=== PATIENT | female | born 1995 | race Two or more races ===

== ENCOUNTER → 2022-06-05 | Outpatient (CLI) | payer MEDICAID ==
[2022-06-05 12:02] LABS: Basophils # (auto) 0 10 ^3/uL (0-0.2); Basophils % (auto) 0.2 % (0.0-2.0); Eosinophils # (auto) 0.1 10 ^3/uL (0-0.8); Eosinophils % (auto) 1.3 % (0.0-7.0); Hematocrit 36.3 % (36.0-46.0); Hemoglobin 12.1 g/dL (12.2-16.2); Lymphocytes # (auto) 0.9 10 ^3/uL (0.4-5.4); Lymphocytes % (auto) 14.9 % (10.0-50.0); Mean Corpuscular Hemoglobin 30.7 pg (28.0-32.0); Mean Corpuscular Hgb Conc. 33.3 g/dL (32.0-36.0); Mean Corpuscular Volume 92.3 fL (80.0-100.0); Monocytes # (auto) 0.5 10 ^3/uL (0-1.3); Monocytes % (auto) 7.6 % (0.0-12.0); Neutrophils # (auto) 4.5 10 ^3/uL (1.6-8.6); Nucleated Red Blood Cells % 0.1 %; Red Blood Cells 3.94 10^6/uL (4.0-5.20)
[2022-06-06 07:06] LABS: RPR Non Reactive (Non Reactive)
== END | disposition home or self-care (01) ==
LOC: LAB 11:27
PROVIDERS: ATTEND Obstetrics & Gynecology
DX: Z34.80 Encounter for supervision of other normal pregnancy, unspecified trimester (principal); Z3A.00 Weeks of gestation of pregnancy not specified
CPT/HCPCS: 36415; 85025; 86592

== ENCOUNTER 2022-06-20 11:45 | Inpatient (IN) | payer MEDICAID ==
[~2022-06-20] VITALS: Ht 152.4 cm; Wt 81.6 kg
[2022-06-20] MEDS ORDERED: LACTATED RINGER'S 1,000 ML IV SCH (12:30)
[2022-06-20] MEDS ORDERED: LIDOCAINE 2%HCL (LOCAL ANESTH.) INJ 20ML MDV IJ PRN (12:30)
[2022-06-20] MEDS ORDERED: DERMOPLAST 60ML BOTTLE TOP PRN (12:30)
[2022-06-20] MEDS ORDERED: PHISODERM TOP SOLN 240ML BTL TOP PRN (12:30)
[2022-06-20] MEDS ORDERED: WITCH HAZEL-GLYCERIN PAD TOP PRN (12:30)
[2022-06-20] MEDS ORDERED: LACT. RINGERS/OXYTOCIN 20UNITS 500 ML IV ONE ×2 (12:30→13:00)
[2022-06-20] MEDS ORDERED: LACT. RINGERS/OXYTOCIN 20UNITS 1,000 ML IV ONE (12:34)
[2022-06-20] MEDS ORDERED: METHYLERGONOVINE MALEATE 0.2 MG/ML AMP IM ONE (12:35)
[2022-06-20] MEDS ORDERED: LIDOCAINE 2%HCL (LOCAL ANESTH.) INJ 10ml MDV ONE ×2 (12:36→12:39)
[2022-06-20] MEDS ORDERED: miSOPROStol 100 mcg TAB PR PRN (12:45)
[2022-06-20] MEDS ORDERED: miSOPROStol 100 mcg TAB SL PRN ×2 (12:45→14:30)
[2022-06-20] MEDS ORDERED: miSOPROStol 100 mcg TAB ONE (12:45)
[2022-06-20] MEDS ORDERED: ONDANSETRON HCL 4 MG/2 ML VIAL ONE (12:47)
[2022-06-20] MEDS ORDERED: CARBOPROST TROMETHAMINE 250 MCG/1ML VIAL IM ONE ×3 (12:47→13:00)
[2022-06-20] MEDS ORDERED: ONDANSETRON HCL 4 MG/2 ML VIAL IM ONE (13:00)
[2022-06-20] MEDS ORDERED: DIPHENOXYLATE W/ATROPINE 2.5 MG TAB PO ONE (13:00)
[2022-06-20] MEDS ORDERED: ONDANSETRON HCL 4 MG/2 ML VIAL IV PRN (13:00)
[2022-06-20] MEDS: ceFAZolin 1GM/50ML 50 ML IV SCH (13:27)
[2022-06-20] MEDS ORDERED: IBUPROFEN 600 MG TAB PO PRN (13:45)
[2022-06-20 13:55] LABS: Basophils # (auto) 0 10 ^3/uL (0-0.2); Basophils % (auto) 0.1 % (0.0-2.0); Eosinophils # (auto) 0 10 ^3/uL (0-0.8); Eosinophils % (auto) 0.1 % (0.0-7.0); Hematocrit 38.3 % (36.0-46.0); Hemoglobin 12.7 g/dL (12.2-16.2); Lymphocytes # (auto) 0.4 10 ^3/uL (0.4-5.4); Lymphocytes % (auto) 3.9 % (10.0-50.0); Mean Corpuscular Hemoglobin 30.6 pg (28.0-32.0); Mean Corpuscular Hgb Conc. 33.1 g/dL (32.0-36.0); Mean Corpuscular Volume 92.4 fL (80.0-100.0); Monocytes # (auto) 0.4 10 ^3/uL (0-1.3); Monocytes % (auto) 3.6 % (0.0-12.0); Neutrophils # (auto) 9.4 10 ^3/uL (1.6-8.6); Neutrophils % (auto) 92.3 % (37.0-80.0); Red Blood Cells 4.14 10^6/uL (4.0-5.20); Red Cell Distribution Width 14.9 % (11.8-14.3); White Blood Cell 10.1 10^3/uL (4.4-10.8)
[2022-06-20 14:10] LABS: INR 0.89 (0.9-1.15); Partial Thromboplastin Time 25.9 sec (24.6-33.4)
[2022-06-20 14:13] LABS: Albumin 3.1 g/dL (3.4-5.0); Calcium 8.8 mg/dL (8.5-10.1); Potassium 4.5 mmol/L (3.5-5.1)
[2022-06-20 14:16] LABS: BUN/Creatinine Ratio 21.6; Bilirubin, Total 0.2 mg/dL (0.2-1.0); Total Protein 6.6 g/dL (6.4-8.2)
[2022-06-20 14:30] VITALS: BP 115/56
[2022-06-20 15:30] VITALS: BP 119/80
[2022-06-20] MEDS ORDERED: ONDANSETRON ODT 4 MG TAB PO PRN (16:15)
[2022-06-20] MEDS ORDERED: ACETAMINOPHEN 325 MG TAB PO PRN (16:15)
[2022-06-20 16:30] VITALS: BP 114/55
[2022-06-20 18:34] VITALS: BP 110/98
[2022-06-20] MEDS: ACETAMINOPHEN 325 MG TAB PO PRN (19:04)
[2022-06-20] MEDS ORDERED: DIPHENOXYLATE W/ATROPINE 2.5 MG TAB PO SCH (22:00)
[2022-06-20 22:09] LABS: Basophils # (auto) 0 10 ^3/uL (0-0.2); Basophils % (auto) 0.3 % (0.0-2.0); Eosinophils # (auto) 0 10 ^3/uL (0-0.8); Eosinophils % (auto) 0.4 % (0.0-7.0); Hematocrit 29.4 % (36.0-46.0); Hemoglobin 10.2 g/dL (12.2-16.2); Mean Corpuscular Hemoglobin 31.6 pg (28.0-32.0); Mean Corpuscular Hgb Conc. 34.6 g/dL (32.0-36.0); Mean Corpuscular Volume 91.3 fL (80.0-100.0); Monocytes # (auto) 0.5 10 ^3/uL (0-1.3); Neutrophils # (auto) 7.4 10 ^3/uL (1.6-8.6); Neutrophils % (auto) 82.3 % (37.0-80.0); Red Blood Cells 3.22 10^6/uL (4.0-5.20); Red Cell Distribution Width 14.7 % (11.8-14.3)
[2022-06-20 23:15] VITALS: BP 101/68
[2022-06-21] MEDS: DOCUSATE SOD 100 MG CAP PO SCH ×2 (00:29→22:11)
[2022-06-21] MEDS: IBUPROFEN 800 MG TAB PO SCH ×4 (00:30→22:11)
[2022-06-21] MEDS: ceFAZolin 1GM/50ML 50 ML IV SCH ×2 (00:30→08:16)
[2022-06-21 03:25] VITALS: BP 94/53
[2022-06-21] MEDS: ACETAMINOPHEN 325 MG TAB PO PRN (03:55)
[2022-06-21 06:06] LABS: RPR Non Reactive (Non Reactive)
[2022-06-21 07:00] VITALS: BP 93/53
[2022-06-21] MEDS: FERROUS SULFATE 325mg EC TAB PO SCH ×2 (08:16→22:11)
[2022-06-21 11:00] VITALS: BP 96/61
[2022-06-21 15:00] VITALS: BP 96/61
[2022-06-21 18:30] VITALS: BP 108/60
[2022-06-21 23:00] VITALS: BP 105/67
[2022-06-22 03:00] VITALS: BP 124/69
[2022-06-22] MEDS: IBUPROFEN 800 MG TAB PO SCH (05:45)
[2022-06-22 06:45] VITALS: BP 104/61
== END 2022-06-22 10:00 | disposition home or self-care (01) | DRG 560 ==
LOC: UNDOADMOB 11:45 → LDRP 11:45 → OBSVTOIN 12:15 → INTOOBSV 12:15 → LDRP 12:20 → OBSVTOIN 12:20 → LDRP 15:17
PROVIDERS: ADMIT Obstetrics & Gynecology; ATTEND Obstetrics & Gynecology
PROC: 10E0XZZ Delivery of Products of Conception, External Approach (ICD-10-PCS; principal; 2022-06-20)
PROC: 0KQM0ZZ Repair Perineum Muscle, Open Approach (ICD-10-PCS; 2022-06-20)
DX: O62.3 Precipitate labor (principal); Z37.0 Single live birth; O60.23X0 Term delivery with preterm labor, third trimester, not applicable or unspecified; O70.1 Second degree perineal laceration during delivery; Z20.822 Contact with and (suspected) exposure to COVID-19; Z3A.38 38 weeks gestation of pregnancy
CPT/HCPCS: 36415; 59025; 59409; 80053; 81002; 82948; 84112; 85025; 85610; 85730; 86592; 86850; 86900; 86901; 87426; 94760; 96360; 96361; 96365; 96366; 96372; G0378; J0690; J2001; J2405; J2590